=== PATIENT | male | born 1975 | race Caucasian/White ===

== ENCOUNTER 2020-10-29 11:31 | Outpatient (CLI) | payer OTHER ==
--- NOTE | 2020-10-29 11:54 | RAD ---
Exam:Left hand 3 views HISTORY: Puncture wound along the second digit COMPARISON: None FINDINGS: Small foci of subcutaneous air compatible with puncture wound at the level of second digit. There is soft tissue swelling. No radiopaque foreign body. There is a punctate calcified density adjacent to the second metacarpal head which is presumed to represent a small osseous fragment, well- corticated. There are degenerative changes involving the first metacarpal phalangeal joint space. No fracture. IMPRESSION: 1. Soft tissue injury involving the left hand as described above. No definite radiopaque foreign body . 2. Nonspecific well-corticated calcification adjacent to the second metatarsal head. 3. No fracture.
== END 2020-10-29 11:32 | disposition home or self-care (01) ==
LOC: MADRAD 11:31
PROVIDERS: ATTEND Family Medicine
DX: M01.X49 Direct infection of unspecified hand in infectious and parasitic diseases classified elsewhere (principal); S69.92XA Unspecified injury of left wrist, hand and finger(s), initial encounter; M25.842 Other specified joint disorders, left hand